=== PATIENT | female | born 1985 | race Caucasian/White ===

== ENCOUNTER 2016-09-10 12:31 | Emergency (ER) | payer MEDICAID ==
[~2016-09-10 12:31] MED LIST: CIPR500T4 PO; DICY1TAB26 PO; PROM1SUP12 PR; STOO100C PO; Z.0.NO CURRENT MEDS
[2016-09-10 12:35] VITALS: BP 99/76; PULSE 69; RESP 16; TEMP 98.5; O2SAT 100
[2016-09-10] MEDS ORDERED: ERYTOIN10 EACH EYE (12:53)
--- NOTE | 2016-09-10 13:15 | PD ---
HPI Chief Complaint: Eye Problems/Injury Time Seen by Provider: 12:55 Travel History International Travel<30 days: No Contact w/Intl Traveler<30days: No Traveled to known affect area: No History of Present Illness HPI 30-year-old female presents to the emergency room for evaluation of bilateral eye drainage, redness, and itchiness for the past 2 weeks. Drainage is white and clear. Patient states symptoms keep changing from 1 eye to the other. She woke up this morning with her left eye glued shut. They are started after she shared eyeliner with her sister. She states her systolic especially transiently as well. She has been using [id number] eyedrops without relief in symptoms. She denies changes in visual acuity, foreign body sensation , pain, photophobia, purulent drainage. Denies chronic medical conditions or daily medications. Denies any other upper respiratory symptoms. PFSH Past Medical History Diabetes: No Diminished Hearing: No Fibromyalgia: Yes ?: Not Tubal Ligation: Yes Past Surgical History Gynecologic Surgery: Yes (BREAST AUGMENTATION) Other Surgery: Yes (BREAST AUGMENTATION, RIGHT GREAT TOE) Social History Alcohol Use: No Tobacco Use: Yes (3/4 PPD) Substance Use: Yes (OXYCODONE, BEATRIZ'S IV DRUG USE) Allergies-Medications (Allergen,Severity, Reaction): Coded Allergies: No Known Allergies (Verified , 09/10/16) Reported Meds & Prescriptions Reported Meds & Active Scripts Active Erythromycin Opth Oint 5 Mg/Gm Oint 1 Applic EACH EYE QID Bentyl (Dicyclomine HCl) 20 Mg Tab 20 Mg PO QIDPRN Colace (Docusate Sodium) 100 Mg Cap 100 Mg PO DAILY Phenergan 25 mg supp (Promethazine HCl) 25 Mg Sup 25 Mg HI Q6HPRN FOR NAUSEA/VOMITING Cipro (Ciprofloxacin HCl) 500 Mg Tab 500 Mg PO BID Reported No Current Meds (Miscellaneous Medication) Misc Review of Systems Except as stated in HPI: all other systems reviewed are Neg Physical Exam Narrative GENERAL: Well-nourished, well-developed patient. SKIN: Focused skin assessment warm/dry. HEAD: Normocephalic. EYES: PERRL, EOMI. Mild injection of the left eye. No appreciable drainage.. No scleral icterus. Positive red light reflex bilaterally. Visual acuity 20/ 20 bilaterally. NECK: Supple, trachea midline. No JVD or lymphadenopathy. CARDIOVASCULAR: Regular rate and rhythm without murmurs, gallops, or rubs. RESPIRATORY: Breath sounds equal bilaterally. No accessory muscle use. No crackles, rales, wheezes, or rhonchi. PSYCHIATRIC: No delusional thought processes. No hallucinations. Data Data Last Documented VS Vital Signs Date Time Temp Pulse Resp B/P Pulse Ox O2 Delivery O2 Flow Rate FiO2 09/10/16 12:35 98.5 69 16 99/76 100 MDM Medical Decision Making Medical Screen Exam Complete: Yes Emergency Medical Condition: Yes Medical Record Reviewed: Yes Differential Diagnosis Conjunctivitis versus foreign body versus allergies Narrative Course 30-year-old female presents to the emergency room for evaluation of bilateral eye drainage, redness, and itchiness for the past 2 weeks. Symptoms alternate between both eyes and started after sharing eyeliner with her sister. She denies any other symptoms. Visual acuity is unaffected. History and physical exam are consistent with conjunctivitis. Patient discharged with erythromycin eye ointment and told to follow-up primary care physician or return for worsening symptoms. She understands and agrees to plan. Diagnosis Primary Impression: Conjunctivitis Qualified Code: H10.33 - Acute bacterial conjunctivitis of both eyes Referrals: [facility] Phys[facility] Med/Other Pt SpecificInfo: Prescription(s) given Scripts Erythromycin Opth Oint 5 Mg/Gm Oint1 Applic EACH EYE QID #1 TUBE Ref 0 Prov:Reshma Pickard MD 09/10/16 Disposition: 01 DISCHARGE HOME Condition: Stable Radha Zuniga Sep 10, 2016 13:15
== END 2016-09-10 13:30 | disposition home or self-care (01) ==
LOC: PHEFT 12:31
DX: H10.33 Unspecified acute conjunctivitis, bilateral (principal); M79.7 Fibromyalgia; F17.210 Nicotine dependence, cigarettes, uncomplicated
CPT/HCPCS: 99283